=== PATIENT | female | born 1990 | race Caucasian/White ===

== ENCOUNTER 2019-06-01 20:53 | Observation (INO) | payer OTHER, SELFPAY ==
--- NOTE | ~2019-06-01 | US_ITS ---
EXAMINATION: US OB <=14 wk fetus w TV DATE: 06/01/2019 22:45 INDICATION: Pelvic pain. . TECHNIQUE: Real-time transabdominal and transvaginal pelvic ultrasound was performed. COMPARISON: None. FINDINGS: TRANSABDOMINAL ULTRASOUND: The uterus measures 6.2 x 5.1 x 3.2 cm. TRANSVAGINAL ULTRASOUND: There is no visible intrauterine gestational sac. The endometrial complex me asures 8 mm in thickness. The right ovary measures 3.2 x 1.6 x 2.2 cm. The left ovary measures 6.2 x 2.0 x 2.4 cm. There is a 3.2 cm mass of heterogeneous echogenicity at the medial aspect of left ovary . There is normal vascular flow in the ovaries. There is trace free fluid in the pelvis. IMPRESSION: 1. No visible intrauterine gestational sac, which may be normal in early . Spontaneous abor tion and ectopic are not excluded. Serial beta-hCGs are recommended. 2. 3.2 cm nonspecific left adnexal mass, which may be a hemorrhagic cyst, neoplasm, or ectopic pregna ncy. Pelvis ultrasound is recommended in 6-12 weeks. Reviewed, dictated and finalized at location A. IMPRESSION: 1. No visible intrauterine gestational sac, which may be normal in early pregn maki. Spontaneous and ectopic are not excluded. Serial beta- hCGs are recommended. 2. 3.2 cm nonspecific left adnexal mass, which may be a hemorrhagic cyst, neopl asm, or ectopic . Pelvis ultrasound is recommended in 6-12 weeks.
[2019-06-01 21:02] VITALS: BP 152/57; PULSE 79; RESP 20; TEMP 36.9; O2SAT 100
--- NOTE | 2019-06-01 21:18 | ED.FEMALEGU ---
HPI - Female Genitourinary General Chief complaint: Abdominal Pain Stated complaint: poss ectopic Time Seen by Provider: 06/01/19 21:08 Source: patient Mode of arrival: ambulatory Limitations: no limitations History of Present Illness HPI Narrative: Patient is a 29-year-old female who presents to the emergency department with complaint of pelvic cramping for 1 week. Patient has a positive test 3 days ago that was positive. She has noticed some vaginal spotting. Patient locates the pain diffusely through the pelvis, but states it is worse on the left than the right. Last normal menstrual period was May 02. She denies any prior pregnancies. Patient denies any other symptoms. MD elicited complaint: pelvic pain and suspected Onset (ago): week(s) (1) Location of symptoms: pelvis Quality of pain: cramping Consistency: intermittent Vaginal discharge: none Vaginal bleeding: scant (Spotting, dark brown and at times pink) Associated symptoms: denies other symptoms Possible : at home test positive (3 days ago) Date of Last Menstrual Period: 05/03/19 Related Data Allergies Allergy/AdvReac Type Severity Reaction Status Date / Time No Known Allergies Allergy Unverified 12/09/15 11:21 Review of Systems Review of Systems: All systems reviewed & are unremarkable except as noted in HPI and below Constitutional: Constitutional: Denies fever(s) Gastrointestinal: Gastrointestinal: Reports abdominal pain, Denies constipation, Denies diarrhea, Denies nausea and Denies vomiting Genitourinary: Genitourinary: Reports abnormal vaginal bleeding, Denies dysuria, Reports pelvic pain, Denies vaginal discharge and Reports other (Denies frequency) Musculoskeletal: Musculoskeletal: Reports back pain PMFSH Past Medical History Medical History (Updated 06/02/19 @ 00:11 by Annamaria Wyatt MD) No significant past medical history Surgical History Surgical History (Updated 06/01/19 @ 21:23 by Annamaria Wyatt MD) No significant past surgical history Social History Social History (Updated 06/01/19 @ 21:23 by Annamaria Wyatt MD) Smoking status: Former smoker Exam Const: General: cooperative, no acute distress and alert Nutritional Appearance: well nourished Orientation/consciousness: patient oriented x3 Limitations: no limitations Resp: Effort & Inspection: normal respiratory effort Auscultation: clear to auscultation bilaterally Cardio: Rate: regular rate Rhythm: regular rhythm GI: GI Palp: Yes Soft to palpation and Yes Tenderness to palpation present (GI) (Mild diffuse lower abdominal/pelvic) Auscultation: normal bowel sounds Skin: General skin exam: normal color Neuro: General: patient oriented x3 Cognition (Neuro): normal cognition Speech: normal speech Extrem: General: normal to inspection, full ROM and no clubbing, cyanosis or edema Psych: Mental Status: mental status grossly normal Affect: normal affect Attitude: cooperative Course Course Emergency Course: Patient advised findings concerning for ectopic noted on ultrasound. Patient with last menstrual period roughly a month ago and a low hCG suggest possibility this could be simply early and it is unusual that patient has findings in both adnexa that appear concerning for ectopic . Patient is hemodynamically stable with a benign exam. Case discussed with [employer] and plan will be admission to the hospital for observation and further evaluation. Patient advised of test results and care plan. Consultations Consultation #1: Case discussed with Dr. Harrison, on-call [employer] OPERATOR. Reviewed labs and ultrasound report. Plan will be observation in the hospital and he will evaluate her in a few hours and reassess and determine significance of ultrasound findings in light of her menstrual history and quantitative hCG. Date: 06/02/19 Time: 00:04 Vital Signs Vital signs: Vital Signs Temperature 9
[2019-06-01 21:28] LABS: Basophils Absolute Auto 0.1 K/mm3 (0.0-0.1); Basophils Percent Auto 0.6 % (0.2-1.2); Eosinophils Absolute Auto 0.8 K/mm3 (0-0.3); Hematocrit 43.9 % (37.0-47.0); Hemoglobin 13.6 g/dL (12.0-15.0); Immature Granulocyte Absolute 0.02 K/mm3 (0.00-0.031); Immature Granulocyte Percent A 0.2 % (0-0.5); Lymphocytes Absolute Auto 2.89 K/mm3 (0.9-3.2); Lymphocytes Percent Auto 30.5 % (18.3-44.2); Mean Corpuscular Hemoglobin 28.6 pg (26-34); Mean Corpuscular Volume 92.2 fl (80-100); Mean Platelet Volume 10.7 fl (7.4-10.4); Monocytes Absolute Auto 0.8 K/mm3 (0.1-0.6); Neutrophils Percent Auto 52.7 % (45.5-73.1); Platelet Count Result 237 k/mm3 (150-375); Red Blood Count 4.76 M/mm3 (4.2-5.4); Red Cell Distribution Width 13.2 % (11.5-14.5); White Blood Count 9.5 K/mm3 (4.5-10.0)
[2019-06-01 21:32] LABS: Add Urine Microscopic? YES; Appearance Urine Clear (Clear); Bacteria Urine Trace /hpf; Bilirubin Urine Negative (Negative); Blood Urine 2+ (Negative); Color Urine Yellow (Yellow); Glucose Urine UA Negative (Negative); Ketones Urine Negative (Negative); Leukocyte Esterase Ur Trace LEU/UL (Negative); Nitrate Urine Positive (Negative); Protein Urine Negative (Negative); Specific Grav Ur 1.018 (1.001-1.035); Squamous Epithelial Cell Urine Few /hpf (Few); Urobilinogen Urine Negative mg/dL (<2.0)
[2019-06-01 21:43] LABS: Alanine Aminotransferase 19 U/L (4-35); Albumin Level 4.5 g/dL (3.5-5.1); Alkaline Phosphatase 65 U/L (38-126); Aspartate Amino Transferase 20 U/L (14-36); Bilirubin,Total 0.2 mg/dL (0.2-1.3); Blood Urea Nitrogen 10 mg/dL (7-17); Calcium 9.3 mg/dL (8.4-10.2); Carbon Dioxide 26 mmol/L (22-30); Chloride 102 mmol/L (98-107); Estimated Glomerular Filt Rate > 60; Glucose 111 mg/dL (65-105); Potassium 3.5 mmol/L (3.4-5.0); Sodium 138 mmol/L (137-145)
[2019-06-02 00:45] VITALS: BP 132/80; PULSE 81; RESP 18; O2SAT 97
--- NOTE | 2019-06-02 01:09 | ADMGEN ---
This patient, Fara Hernandez, was admitted to Medical Room 349-01. Patient/family oriented to hospital policies and general routines including ID bracelet, bed and alarms, visiting hours, pain management, procedures, bathroom and other care routines, personal items, smoking policy, room service/diet, and visiting hours. Valuables list has been completed. Information on how to activate the Rapid Response Team has been discussed. Patient/Family are encouraged to report perceived risks to care and to ask questions if they do not understand what they are told or what they should do.
[2019-06-02] MEDS: LACTATED RINGERS 1,000 ML 150 ML IV CONT (01:26)
[2019-06-02 01:44] VITALS: BP 118/57; PULSE 52; RESP 18; TEMP 36.4; O2SAT 99; BMI 34.4
[2019-06-02 02:53] VITALS: PULSE 52; RESP 18; O2SAT 99
[2019-06-02 06:00] VITALS: BP 108/51; PULSE 62; RESP 16; TEMP 36.7; O2SAT 100
--- NOTE | 2019-06-02 06:59 | PM.IMHP ---
H&P: HPI History of Present Illness Chief complaint: ectopic Narrative: Fara Hernandez is a 29 year old female 1 para 0 whose last menstrual period was approximately 1 month ago was admitted through the ER with lower abdominal pain. Three days prior she had a positive hCG by urine. She has had any bleeding that she had this diffuse pain. Ultrasound on admission showed possibly some free fluid and a questionable mass on the left adnexa. Her quantitative HCG was 288. She is admitted for observation for possible ectopic . Review of Systems Review of Systems: All systems reviewed & are unremarkable except as noted in HPI and below PMFSH Past Medical History Medical History No significant past medical history Surgical History Surgical History No significant past surgical history Social History Social History Smoking status: Former smoker Tobacco type: cigarettes Second hand tobacco smoke exposure: No Alcohol intake: never Substance use: former Substance use type: marijuana Gender identity (if verbalized by the patient): Female Spiritual care concerns: No Agree to blood products: Yes Meds Home Medications and Allergies Home Medications Medication Instructions Recorded Confirmed Type No Home Medications 06/02/19 06/02/19 History Allergies Allergy/AdvReac Type Severity Reaction Status Date / Time No Known Allergies Allergy Unverified 12/09/15 11:21 Vital Signs Vital Signs - 24 hr 06/01/19 21:02 06/02/19 00:45 06/02/19 01:44 Temperature 98.4 F 97.5 F L Pulse Rate 79 81 52 L Respiratory Rate 20 18 18 Blood Pressure 152/57 H 132/80 118/57 L Pulse Oximetry 100 97 99 06/02/19 02:53 06/02/19 06:00 Temperature 98.0 F Pulse Rate 52 L 62 Respiratory Rate 18 16 Blood Pressure 108/51 L Pulse Oximetry 99 100 Exam Const: General: no acute distress Eyes: General: appearance normal, both eyes and all related structures Neck: Neck: supple and no JVD Thyroid: thyroid normal Resp: Effort & Inspection: normal respiratory effort Auscultation: clear to auscultation bilaterally Cardio: Rate: regular rate Rhythm: regular rhythm GI: Inspection: non-distended GI Palp: Yes Soft to palpation, No Tenderness to palpation present (GI) and No Guarding due to palpation present (GI) Auscultation: normal bowel sounds : General: Yes bladder normal to palpation External Female Exam: normal external appearance Speculum Exam - Vagina: normal vaginal discharge and No vaginal bleeding Speculum Exam - Cervix: nontender Bimanual exam- vagina & uterus: bladder normal to palpation and No Cervical tenderness present OB/external & speculum: No vaginal bleeding Skin: General skin exam: no rashes or lesions noted Extrem: General: normal to inspection and no edema Psych: Mental Status: mental status grossly normal Affect: normal affect H&P: Results Labs Labs: Short CBC 06/01/19 Range/Units 21:21 WBC 9.5 (4.5-10.0) K/mm3 Hgb 13.6 (12.0-15.0) g/dL Hct 43.9 (37.0-47.0) % Plt Count 237 (150-375) k/mm3 BMP 06/01/19 21:20 Sodium 138 Potassium 3.5 Chloride 102 Carbon Dioxide 26 BUN 10 Creatinine 0.80 Glucose 111 H Calcium 9.3 Liver Function 06/01/19 Range/Units 21:20 Total Bilirubin 0.2 (0.2-1.3) mg/dL AST 20 (14-36) U/L ALT 19 (4-35) U/L Alkaline Phosphatase 65 (38-126) U/L Albumin 4.5 (3.5-5.1) g/dL Urine 06/01/19 Range/Units 21:23 Urine Color Yellow (Yellow) Urine Appearance Clear (Clear) Urine pH 6.0 (5.0-9.0) Ur Specific [place] 1.018 (1.001-1.035) Urine Protein Negative (Negative) mg/dL Urine Glucose (UA) Negative (Negative) mg/dL Assessment and Plan Additional Plan Yoselin
--- NOTE | 2019-06-02 07:01 | PM.OBPNVD ---
OB - PN: Subj Subjective Date/time seen: 06/02/19 07:01 feeling better/hungry OB - PN: Obj Data Labs CBC & Chem 7: 06/01/19 21:21 06/01/19 21:20 Labs: Laboratory Results - last 24 hr 06/01/19 06/01/19 06/01/19 21:20 21:21 21:21 WBC 9.5 RBC 4.76 Hgb 13.6 Hct 43.9 MCV 92.2 MCH 28.6 MCHC 31.0 L RDW 13.2 Plt Count 237 MPV 10.7 H Immature Gran % (Auto) 0.2 Neut % (Auto) 52.7 Lymph % (Auto) 30.5 [place] % (Auto) 8.0 Eos % (Auto) 8.0 H Baso % (Auto) 0.6 Lymph # (Auto) 2.89 [place] # (Auto) 0.8 H Eos # (Auto) 0.8 H Baso # (Auto) 0.1 Abs Immat Gran (auto) 0.02 Absolute Neuts (auto) 5.0 Absolute Nucleated RBC 0.0 Nucleated RBC % 0.0 Sodium 138 Potassium 3.5 Chloride 102 Carbon Dioxide 26 BUN 10 Creatinine 0.80 Estim Creat Clear Calc Not Reportable Estimated GFR > 60 Glucose 111 H Calcium 9.3 Total Bilirubin 0.2 AST 20 ALT 19 Alkaline Phosphatase 65 Total Protein 8.0 Albumin 4.5 Beta HCG, Quant 288.07 Urine Color Urine Appearance Urine pH Ur Specific [place] Urine Protein Urine Glucose (UA) Urine Ketones Ur Blood (Man) Urine Nitrate Urine Bilirubin Urine Urobilinogen Leukocyte Esterase Rfl Urine RBC Urine WBC Ur Squamous Epith Cells Urine Bacteria Blood Type A Positive Antibody Screen Negative Screen Not Reportable Baby's Blood Type Not Reportable Baby's SAN[place]ITA Not Reportable Doses of RhIg Required 0 06/01/19 21:23 WBC RBC Hgb Hct MCV MCH MCHC RDW Plt Count MPV Immature Gran % (Auto) Neut % (Auto) Lymph % (Auto) [place] % (Auto) Eos % (Auto) Baso % (Auto) Lymph # (Auto) [place] # (Auto) Eos # (Auto) Baso # (Auto) Abs Immat Gran (auto) Absolute Neuts (auto) Absolute Nucleated RBC Nucleated RBC % Sodium Potassium Chloride Carbon Dioxide BUN Creatinine Estim Creat Clear Calc Estimated GFR Glucose Calcium Total Bilirubin AST ALT Alkaline Phosphatase Total Protein Albumin Beta HCG, Quant Urine Color Yellow Urine Appearance Clear Urine pH 6.0 Ur Specific [place] 1.018 Urine Protein Negative Urine Glucose (UA) Negative Urine Ketones Negative Ur Blood (Man) 2+ H Urine Nitrate Positive H Urine Bilirubin Negative Urine Urobilinogen Negative Leukocyte Esterase Rfl Trace H Urine RBC 3-5 H Urine WBC 4-6 H Ur Squamous Epith Cells Few Urine Bacteria Trace Blood Type Antibody Screen Screen Baby's Blood Type Baby's SAN[place]ITA Doses of RhIg Required OB - PN A/P Plan Comments: impression: Early / possible ectopic Plan: Recheck H&H this morning. In light of her improved state and decrease pain will consider home with follow-up HCG tomorrow with ectopic precautions Time Spent With Patient Time: Total time spent is greater than 50% in coordination of care (as documented) at patient's floor/unit and/or counseling patient: Review of Systems Review of Systems: All systems reviewed & are unremarkable except as noted in HPI and below Exam Const: General: no acute distress Eyes: General: appearance normal, both eyes and all related structures Neck: Neck: supple and no JVD Thyroid: thyroid normal Resp: Effort & Inspection: normal respiratory effort Auscultation: clear to auscultation bilaterally Cardio: Rate: regular rate Rhythm: regular rhythm GI: Inspection: non-distended GI Palp: Yes Soft to palpation, No Tenderness to palpation present (GI) and No Guarding due to palpation present (GI) Auscultation: normal bowel sounds : General: Yes bladder normal to palpation External Female Exam: normal external appearance Speculum Exam - Vagina: normal vaginal discharge and No vaginal bleeding Speculum Exam - Cervix: nontender Bimanual exam- vagina & uterus: bladder n
[2019-06-02 07:27] LABS: Hematocrit 38.9 % (37.0-47.0); Hemoglobin 12.6 g/dL (12.0-15.0); Mean Corpuscular HGB Conc 32.4 g/dl (32-36); Mean Corpuscular Volume 89.6 fl (80-100); Mean Platelet Volume 10.7 fl (7.4-10.4); Platelet Count Result 230 k/mm3 (150-375); Red Blood Count 4.34 M/mm3 (4.2-5.4); White Blood Count 10.3 K/mm3 (4.5-10.0)
--- NOTE | 2019-06-02 08:48 | PM.OBPNVD ---
OB - PN: Subj Subjective Date/time seen: 06/02/19 08:48 h/h stable OB - PN: Obj Data Labs CBC & Chem 7: 06/02/19 07:12 06/01/19 21:20 Labs: Laboratory Results - last 24 hr 06/01/19 06/01/19 06/01/19 21:20 21:21 21:21 WBC 9.5 RBC 4.76 Hgb 13.6 Hct 43.9 MCV 92.2 MCH 28.6 MCHC 31.0 L RDW 13.2 Plt Count 237 MPV 10.7 H Immature Gran % (Auto) 0.2 Neut % (Auto) 52.7 Lymph % (Auto) 30.5 [place] % (Auto) 8.0 Eos % (Auto) 8.0 H Baso % (Auto) 0.6 Lymph # (Auto) 2.89 [place] # (Auto) 0.8 H Eos # (Auto) 0.8 H Baso # (Auto) 0.1 Abs Immat Gran (auto) 0.02 Absolute Neuts (auto) 5.0 Absolute Nucleated RBC 0.0 Nucleated RBC % 0.0 Sodium 138 Potassium 3.5 Chloride 102 Carbon Dioxide 26 BUN 10 Creatinine 0.80 Estim Creat Clear Calc Not Reportable Estimated GFR > 60 Glucose 111 H Calcium 9.3 Total Bilirubin 0.2 AST 20 ALT 19 Alkaline Phosphatase 65 Total Protein 8.0 Albumin 4.5 Beta HCG, Quant 288.07 Urine Color Urine Appearance Urine pH Ur Specific [place] Urine Protein Urine Glucose (UA) Urine Ketones Ur Blood (Man) Urine Nitrate Urine Bilirubin Urine Urobilinogen Leukocyte Esterase Rfl Urine RBC Urine WBC Ur Squamous Epith Cells Urine Bacteria Blood Type A Positive Antibody Screen Negative Screen Not Reportable Baby's Blood Type Not Reportable Baby's [place] Not Reportable Doses of RhIg Required 0 06/01/19 06/02/19 21:23 07:12 WBC 10.3 H RBC 4.34 Hgb 12.6 Hct 38.9 MCV 89.6 MCH 29.0 MCHC 32.4 RDW 13.0 Plt Count 230 MPV 10.7 H Immature Gran % (Auto) Neut % (Auto) Lymph % (Auto) [place] % (Auto) Eos % (Auto) Baso % (Auto) Lymph # (Auto) [place] # (Auto) Eos # (Auto) Baso # (Auto) Abs Immat Gran (auto) Absolute Neuts (auto) Absolute Nucleated RBC Nucleated RBC % Sodium Potassium Chloride Carbon Dioxide BUN Creatinine Estim Creat Clear Calc Estimated GFR Glucose Calcium Total Bilirubin AST ALT Alkaline Phosphatase Total Protein Albumin Beta HCG, Quant Urine Color Yellow Urine Appearance Clear Urine pH 6.0 Ur Specific [place] 1.018 Urine Protein Negative Urine Glucose (UA) Negative Urine Ketones Negative Ur Blood (Man) 2+ H Urine Nitrate Positive H Urine Bilirubin Negative Urine Urobilinogen Negative Leukocyte Esterase Rfl Trace H Urine RBC 3-5 H Urine WBC 4-6 H Ur Squamous Epith Cells Few Urine Bacteria Trace Blood Type Antibody Screen Screen Baby's Blood Type Baby's [place] Doses of RhIg Required Imaging Radiologist's impression: Impressions Obstetrics Ultrasound 06/02/19 07:27 IMPRESSION: 1. No visible intrauterine gestational sac, which may be normal in early . Spontaneous and ectopic are not excluded. Serial beta-hCGs are recommended. 2. 3.2 cm nonspecific left adnexal mass, which may be a hemorrhagic cyst, neoplasm, or ectopic . Pelvis ultrasound is recommended in 6-12 weeks. OB - PN A/P Plan Comments: will feed. check quant hcg ow with follow up office ectopic precautions reviewed earlier Time Spent With Patient Time: Total time spent is greater than 50% in coordination of care (as documented) at patient's floor/unit and/or counseling patient:
--- NOTE | 2019-06-02 08:57 | PM.DS ---
DS: Diagnosis Admitting Diagnosis Admitting Diagnosis: threaetened ab DS: Summary Time Spent with Patient Time attestation: Total time spent providing and/or coordinating discharge services: Exam Const: General: no acute distress Eyes: General: appearance normal, both eyes and all related structures Neck: Neck: supple and no JVD Thyroid: thyroid normal Resp: Effort & Inspection: normal respiratory effort Auscultation: clear to auscultation bilaterally Cardio: Rate: regular rate Rhythm: regular rhythm GI: Inspection: non-distended GI Palp: Yes Soft to palpation, No Tenderness to palpation present (GI) and No Guarding due to palpation present (GI) Auscultation: normal bowel sounds : General: Yes bladder normal to palpation External Female Exam: normal external appearance Speculum Exam - Vagina: normal vaginal discharge and No vaginal bleeding Speculum Exam - Cervix: nontender Bimanual exam- vagina & uterus: bladder normal to palpation and No Cervical tenderness present OB/external & speculum: No vaginal bleeding Skin: General skin exam: no rashes or lesions noted Extrem: General: normal to inspection and no edema Psych: Mental Status: mental status grossly normal Affect: normal affect DS: Data Data Completed and Pending Labs on day of discharge: Labs from last 24 hours 06/02/19 06/01/19 06/01/19 07:12 21:23 21:21 WBC 10.3 H 9.5 RBC 4.34 4.76 Hgb 12.6 13.6 Hct 38.9 43.9 MCV 89.6 92.2 MCH 29.0 28.6 MCHC 32.4 31.0 L RDW 13.0 13.2 Plt Count 230 237 MPV 10.7 H 10.7 H Immature Gran % (Auto) 0.2 Neut % (Auto) 52.7 Lymph % (Auto) 30.5 [place] % (Auto) 8.0 Eos % (Auto) 8.0 H Baso % (Auto) 0.6 Lymph # (Auto) 2.89 [place] # (Auto) 0.8 H Eos # (Auto) 0.8 H Baso # (Auto) 0.1 Abs Immat Gran (auto) 0.02 Absolute Neuts (auto) 5.0 Absolute Nucleated RBC 0.0 Nucleated RBC % 0.0 Sodium Potassium Chloride Carbon Dioxide BUN Creatinine Estim Creat Clear Calc Estimated GFR Glucose Calcium Total Bilirubin AST ALT Alkaline Phosphatase Total Protein Albumin Beta HCG, Quant Urine Color Yellow Urine Appearance Clear Urine pH 6.0 Ur Specific [place] 1.018 Urine Protein Negative Urine Glucose (UA) Negative Urine Ketones Negative Ur Blood (Man) 2+ H Urine Nitrate Positive H Urine Bilirubin Negative Urine Urobilinogen Negative Leukocyte Esterase Rfl Trace H Urine RBC 3-5 H Urine WBC 4-6 H Ur Squamous Epith Cells Few Urine Bacteria Trace Blood Type Antibody Screen Screen Baby's Blood Type Baby's [place] Doses of RhIg Required 06/01/19 06/01/19 21:21 21:20 WBC RBC Hgb Hct MCV MCH MCHC RDW Plt Count MPV Immature Gran % (Auto) Neut % (Auto) Lymph % (Auto) [place] % (Auto) Eos % (Auto) Baso % (Auto) Lymph # (Auto) [place] # (Auto) Eos # (Auto) Baso # (Auto) Abs Immat Gran (auto) Absolute Neuts (auto) Absolute Nucleated RBC Nucleated RBC % Sodium 138 Potassium 3.5 Chloride 102 Carbon Dioxide 26 BUN 10 Creatinine 0.80 Estim Creat Clear Calc Not Reportable Estimated GFR > 60 Glucose 111 H Calcium 9.3 Total Bilirubin 0.2 AST 20 ALT 19 Alkaline Phosphatase 65 Total Protein 8.0 Albumin 4.5 Beta HCG, Quant 288.07 Urine Color Urine Appearance Urine pH Ur Specific [place] Urine Protein Urine Glucose (UA) Urine Ketones Ur Blood (Man) Urine Nitrate Urine Bilirubin Urine Urobilinogen Leukocyte Esterase Rfl Urine RBC Urine WBC Ur Squamous Epith Cells Urine Bacteria Blood Type A Positive Antibody Screen Negative Screen Not Reportable Baby's Blood Type Not Reportable Baby's [place] Not Reportable Doses of RhIg Required 0 Discharge Plan Discharge Attending physicia
== END 2019-06-02 12:05 | disposition home or self-care (01) ==
LOC: ANHED 06-02 00:11 → ANH3MED 06-02 08:58
PROVIDERS: Admitting Provider Obstetrics & Gynecology; Emergency Provider Emergency Medicine; Visit Provider Obstetrics & Gynecology
DX: O20.0 Threatened abortion (principal); Z3A.00 Weeks of gestation of pregnancy not specified; Z87.891 Personal history of nicotine dependence
CPT/HCPCS: 36415; 76801; 76817; 80053; 81001; 81025; 84702; 85025; 85027; 85461; 99285; G0378; J7120

== ENCOUNTER 2019-06-04 14:58 | Outpatient (CLI) | payer OTHER, SELFPAY ==
[2019-06-04 15:57] LABS: Beta HCG Quantitative 199.57 mIU/ML
== END 2019-06-04 14:59 | disposition home or self-care (01) ==
PROVIDERS: Visit Provider Student in an Organized Health Care Education/Training Program
DX: Z36.89 Encounter for other specified antenatal screening (principal)
CPT/HCPCS: 36415; 84702